=== PATIENT | female | born 1970 | race Caucasian/White ===

== ENCOUNTER 2017-01-24 01:59 | Emergency (ER) | payer SELFPAY ==
--- NOTE | ~2017-01-24 | EKG ---
PATIENT: [facility] UNIT #: [id number] Ventricular Rate: 69 BPM Atrial Rate: 69 BPM P-R Interval: 164 ms QRS Duration: 74 ms Q-T Interval: 414 ms QTC Calculation(Bezet): 443 ms P [place]: 65 degrees Calculated R [place]: 50 degrees Calculated T [place]: 59 degrees Diagnosis Line: Normal sinus rhythm Diagnosis Line: Possible Anterior infarct (cited on or before Diagnosis Line: 24-JAN-2017) Diagnosis Line: Abnormal ECG Diagnosis Line: When compared with ECG of 03-AUG-2016 06:09, Diagnosis Line: No significant change was found Diagnosis Line: Confirmed by PAULETTE FELIZ MD ([id number]) on Diagnosis Line: 01/24/2017 2:49:07 PM INTERPRETING MD: TRAY CONLEY
[~2017-01-24 01:59] MED LIST: ACULAR10 ML OS; AUGMENTIN875 MG PO; FLOXIN OTIC5 M1 AD; MOTRIN600 MG PO; NO MEDICATIONS; VOLTAREN75 MG PO; XANAX2 MG PO; ZIAGEN300 M1
[2017-01-24 02:47] LABS: URINE SOURCE CLEAN CATCH
[2017-01-24 02:49] LABS: BASOPHIL# 0.1 X10e3 (0-0.3); EOSINOPHIL# 0.1 X10e3 (0-0.7); EOSINOPHIL% 1.8 % (0.0-7.0); HEMATOCRIT 42.7 % (35.0-45.0); HEMOGLOBIN 14.6 gm/dL (12.0-16.0); LYMPHOCYTE# 2.3 X10e3 (1.0-3.5); LYMPHOCYTE% 36.4 % (17.0-45.0); MEAN CELL VOLUME 95.5 FL (83-96); MEAN CORPUSCULAR HEMOGLOBIN 32.6 PG (28-34); MEAN CORPUSCULAR HGB CONC 34.1 g/dL (30-36); MEAN PLATELET VOLUME 8.6 FL (6.5-11.5); MICRO INDICATED? NO; MONOCYTE# 0.8 X10e3 (0-1.0); MONOCYTE% 12.2 % (3.0-12.0); NEUTROPHIL% 48.6 % (40-75); PLATELET COUNT 308 X10e3 (140-420); RED BLOOD COUNT 4.47 X10e (3.90-5.30); RED CELL DISTRIBUTION WIDTH 13.3 % (11.0-15.5); URINE APPEARANCE CLEAR; URINE BILIRUBIN NEG (NEG); URINE BLOOD NEG (NEG); URINE COLOR YELLOW; URINE GLUCOSE NEG (NORM); URINE KETONE NEG (NEG); URINE LEUKOCYTE ESTERASE NEG (NEG); URINE NITRATE NEG (NEG); URINE PROTEIN NEG (NEG); URINE UROBILINOGEN 0.2 MG/DL (NORM); WHITE BLOOD COUNT 6.2 X10e3 (4.0-10.5)
[2017-01-24 02:50] LABS: DIFF IND NO
[2017-01-24 03:01] LABS: CALCIUM SERUM 8.9 mg/dL (8.4-10.2); CREATININE SERUM 0.7 mg/dL (0.6-1.4); GLOM FILT RATE Estimated 102.5 mL/min (>60); POTASSIUM 3.7 mmol/L (3.5-5.1)
[2017-01-24 03:06] LABS: POC - CKMB <1.0 ng/mL (0.0-7.9); POC - TROPONIN <0.05 ng/mL (<=0.05)
== END 2017-01-24 04:00 | disposition home or self-care (01) ==
LOC: SED 01:59
PROVIDERS: Emergency Medicine
DX: R42 Dizziness and giddiness (principal); I10 Essential (primary) hypertension; F41.9 Anxiety disorder, unspecified; F17.200 Nicotine dependence, unspecified, uncomplicated; Z79.899 Other long term (current) drug therapy
CPT/HCPCS: 80048; 81003; 82553; 84484; 85025; 93005; 96360; 99284